=== PATIENT | female | born 1965 | race Caucasian/White ===

== ENCOUNTER 2020-04-25 03:21 | Outpatient (CLI) | payer BC, SELFPAY ==
[2020-04-25 19:05] LABS: SARS-CoV-2 RNA PCR Negative
== END 2020-04-25 03:22 | disposition home or self-care (01) ==
LOC: ANHCOVIDDT 03:22
PROVIDERS: PCP Family Medicine; Visit Provider Internal Medicine Gastroenterology
DX: Z01.812 Encounter for preprocedural laboratory examination (principal); Z20.828 Contact with and (suspected) exposure to other viral communicable diseases
CPT/HCPCS: 87635; C9803; U0003

== ENCOUNTER 2020-04-27 01:06 | Day surgery (SDC) | payer BC, SELFPAY ==
[2020-04-23 09:05] VITALS: BMI 28.5
[2020-04-27 08:16] VITALS: BP 180/88; PULSE 104; RESP 20; TEMP 36.2; O2SAT 99; BMI 29.6
--- NOTE | 2020-04-27 08:28 | P.HP_ITS ---
History of Present Illness History of Present Illness Consent: Risks, benefits, and alternatives have been discussed and questions answered. Patient agrees to proceed with procedure. Chief complaint: neoplasm screening, family hx colon CA Narrative: Nhi Romano is a 54 year old W female referred for her 1st screening colonoscopy secondary to family history of colon cancer in her sister diagnosed in her 50s and maternal grandfather diagnosed greater than 60 years of age. Patient is asymptomatic. There is also history of breast cancer in the family. She states she does not think her sister had genetic testing for colorectal cancer syndrome. However she will find this out. [facility] Past Medical History Medical History Hypertension Renal insufficiency Smoker Surgical History Surgical History (Updated 04/27/20 @ 08:30 by Miguel Jiménez MD) History of ankle surgery Family History Family History (Updated 02/01/16 @ 23:19 by DOCTOR UNKNOWN) Sibling Hypertension Father Hypertension Mother Family history of kidney disease Family history of diabetes mellitus in first degree relative Family history of congestive heart failure Family history of heart disease in male family member before age 55 Grandparent Carcinoma of colon Other Diabetes mellitus Family history of cardiovascular disease Family history of malignant neoplasm Social History Social History Smoking status: Current every day smoker Tobacco type: cigarettes Alcohol intake: current Drinks per week: 3 Substance use: unknown Substance use type: does not use Living arrangements: with family Spiritual care concerns: No Meds Home Medications and Allergies Home Medications Medication Instructions Recorded Confirmed Type diltiazem HCl [Cartia XT] 240 mg PO DAILY 04/23/20 04/27/20 History ranitidine HCl [Heartburn Relief 75 mg PO PRN PRN 04/23/20 04/23/20 History (ranitidine)] Allergies Allergy/AdvReac Type Severity Reaction Status Date / Time morphine Allergy Unknown Sick to Verified 04/27/20 08:14 stomach Vital Signs Vital Signs - 24 hr 04/27/20 08:16 Temperature 36.2 C L Pulse Rate 104 H Respiratory Rate 20 Blood Pressure 180/88 H Pulse Oximetry 99 Exam Const: Orientation/consciousness: patient oriented x3 Resp: Auscultation: clear to auscultation bilaterally Cardio: Rate: regular rate Rhythm: regular rhythm Heart sounds: no murmurs GI: GI Palp: Yes Soft to palpation, No Tenderness to palpation present (GI), Yes No hepatosplenomegaly present and No Palpable mass present Auscultation: normal bowel sounds Neuro: General: patient oriented x3 and no focal motor deficits Extrem: General: no pedal edema Assessment and Plan Additional Plan screening colonoscopy in high risk patient
--- NOTE | 2020-04-27 08:31 | WPDANESEPPF ---
Anes - Initial Pre Proc Eval Procedure: Operation Date: 04/27/20 09:00 Proposed Procedures p Screening Colonoscopy - Miguel Jiménez MD Date/Time: 04/27/20 08:31 Surgeon: Miguel Jiménez MD Pre Op Diagnosis: neoplasm screening, family hx colon CA Patient Data Age: 54 Gender: F Height: 1.6 m Weight: 75.9 kg Last Vital Signs Temp 36.2 C L 04/27/20 08:16 Pulse 104 H 04/27/20 08:16 Resp 20 04/27/20 08:16 BP 180/88 H 04/27/20 08:16 Pulse Ox 99 04/27/20 08:16 Allergies Allergy/AdvReac Type Severity Reaction Status Date / Time morphine Allergy Unknown Sick to Verified 04/27/20 08:14 stomach Home Medications Medication Instructions Recorded Confirmed Type diltiazem HCl [Cartia XT] 240 mg PO DAILY 04/23/20 04/27/20 History ranitidine HCl [Heartburn Relief 75 mg PO PRN PRN 04/23/20 04/23/20 History (ranitidine)] Patient hx anesthesia problems: none Family hx anesthesia problems: none PMFSH Past Medical History Medical History Hypertension Overweight (BMI 25.0-29.9) Renal insufficiency Smoker Surgical History Surgical History (Updated 04/27/20 @ 08:30 by Miguel Jiménez MD) History of ankle surgery Family History Family History (Updated 02/01/16 @ 23:19 by DOCTOR UNKNOWN) Sibling Hypertension Father Hypertension Mother Family history of kidney disease Family history of diabetes mellitus in first degree relative Family history of congestive heart failure Family history of heart disease in male family member before age 55 Grandparent Carcinoma of colon Other Diabetes mellitus Family history of cardiovascular disease Family history of malignant neoplasm Social History Social History Smoking status: Current every day smoker Tobacco type: cigarettes Alcohol intake: current Drinks per week: 3 Substance use: unknown Substance use type: does not use Living arrangements: with family Spiritual care concerns: No Anes - Eval Final PreProcedure Day of Procedure 04/27/20 08:31 Patient weight: overweight Heart: regular rate and rhythm Lungs: clear to auscultation and normal air movement Airway: Mallampati scale class II Neurological: alert and oriented Last oral intake: >/= 8 hours ASA classification: III Emergent: no Anesthetic plan: proceed Anesthesia type and monitoring: general GIVS Informed Consent: The patient's anesthetic plan and its attendant risks and benefits were discussed with the patient/family/POA. Questions were solicited and answers provided to the satisfaction of the patient/family/POA.
[2020-04-27] MEDS: LACTATED RINGERS 1,000 ML 150 ML IV CONT (08:33)
[2020-04-27 09:33] VITALS: BP 141/80; PULSE 88; RESP 26; O2SAT 100
[2020-04-27 09:43] VITALS: BP 150/97; PULSE 81; RESP 21; O2SAT 99
[2020-04-27 09:53] VITALS: BP 163/98; PULSE 82; RESP 22; O2SAT 98
== END 2020-04-27 09:58 | disposition home or self-care (01) ==
PROVIDERS: PCP Family Medicine; Referring Provider Obstetrics & Gynecology Gynecology; Visit Provider Internal Medicine Gastroenterology
PROC: 0DJD8ZZ Inspection of Lower Intestinal Tract, Via Natural or Artificial Opening Endoscopic (ICD-10-PCS; CPT 45378; principal; 2020-04-27 09:00)
DX: Z12.11 Encounter for screening for malignant neoplasm of colon (principal); K63.5 Polyp of colon; K62.1 Rectal polyp; K64.8 Other hemorrhoids; K64.4 Residual hemorrhoidal skin tags; I10 Essential (primary) hypertension; N28.9 Disorder of kidney and ureter, unspecified; F17.210 Nicotine dependence, cigarettes, uncomplicated; Z80.0 Family history of malignant neoplasm of digestive organs; Z80.3 Family history of malignant neoplasm of breast
CPT/HCPCS: 45385; 45380; 88305; J2704; J7120

== ENCOUNTER → 2020-12-05 16:39 | Outpatient (CLI) | payer BC, SELFPAY ==
--- NOTE | ~2020-12-05 | MM_ITS ---
EXAMINATION: MM screening erin BI w sen HISTORY: Screening TECHNIQUE: Craniocaudal and mediolateral oblique 3-D tomosynthesis images were obtained and synthetic 2-D images were generated. CAD analysis was submitted and interpreted. COMPARISON: No prior mammogram is available for comparison at this institution. BREAST PARENCHYMAL COMPOSITION: There are scattered areas of fibroglandular density. FINDINGS: There is no evidence of suspicious mass, calcification, or architectural distortion to sugg est malignancy in either breast. There has been no suspicious interval change. IMPRESSION: 1. No mammographic evidence of malignancy. 2. Recommend routine screening mammography in one year. BI-RADS Category 1: Negative Reviewed, dictated and finalized at location A.
== END ==
PROVIDERS: PCP Family Medicine; Visit Provider Nurse Practitioner
DX: Z12.31 Encounter for screening mammogram for malignant neoplasm of breast (principal)
CPT/HCPCS: 77063; 77067

== ENCOUNTER → 2021-01-14 17:51 | Outpatient (CLI) | payer BC, SELFPAY ==
--- NOTE | ~2021-01-14 | DEXA_ITS ---
Bone Density Report Name: Nhi Romano Age: 55 Sex: Female Ethnicity: White Date of : 1965 Indication: postmenopausal; screening for osteoporosis; Referring Provider: Deja, Diamante Study: Bone densitometry was performed. Exam Date: January 14, 2021 Accession number: [id number] Bone Density: Region BMD T-score Z-score Classification AP Spine (L1-L4) 0.949 -0.9 0.1 Normal Femoral Neck (Left) 0.677 -1.6 -0.6 Osteopenia Total Hip (Left) 0.832 -0.9 -0.3 Normal Femoral Neck (Right) 0.718 -1.2 -0.2 Osteopenia Total Hip (Right) 0.882 -0.5 0.1 Normal Total Hip Mean 0.857 -0.7 -0.1 Normal World Health Organization criteria for BMD impression classify patients as: Normal (T-score at or above -1.0), Osteopenia (T-score between -1.0 and -2.5), or Osteoporosis (T-score at or below -2.5). 10-year Fracture Risk(1): Major Osteoporotic Fracture 5.9% Hip Fracture 0.8% Reported Risk Factors: [place] (), Neck BMD=0.677, BMI=29.3, smoking (1) FRAX(R) Version 3.08. Fracture probability calculated for an untreated patient. Fracture probability may be lower if the patient has received treatment. Clinical Information Provided by Patient: Smokes Has used the following medications: Vitamin D, Calcium, MTV Patient maximum height was 63.5 Menopause Age: 53 No regular weight bearing exercise Drinks caffeinated beverages Onset of menses at age 15 Number of children 1 Impression: The patient has low bone mass, based on the Left Femoral Neck T-score. The patient has an estimated ten-year risk of hip fracture of 0.8% and an estimated ten-year risk of major fracture of 5.9%, based on the WHO FRAX algorithm. The patient has risk factors, including: smoking. Discussion: BONE DENSITY IS LOW AT ONE OR MORE SKELETAL SITES. This patient's lowest T-score is low at one or more skeletal sites. It meets the World Health Organization's (WHO) criteria for ?low bone mass? (T-score between -1.0 and -2.5). The patient's 10-year risk of fracture as calculated by FRAX is less than the threshold where pharmacological therapy is recommended by the National Osteoporosis Foundation (NOF). However, all treatment decisions require clinical judgment and consideration of individual patient factors, including patient preferences, comorbidities, previous drug use, risk factors not captured in the FRAX model (e.g., frailty, falls, vitamin D deficiency, increased bone turnover, interval significant decline in bone density) and possible under or overestimation of fracture risk by FRAX. The patient should follow a healthful lifestyle (good nutrition with adequate calcium and vitamin D, and appropriate weight-bearing exercise). Follow-Up: Consider repeating this study in 2 to 3 years to reassess this patient's status, or sooner if
== END ==
PROVIDERS: Visit Provider Nurse Practitioner
DX: Z13.820 Encounter for screening for osteoporosis (principal); M85.89 Other specified disorders of bone density and structure, multiple sites
CPT/HCPCS: 77080

== ENCOUNTER 2023-04-03 00:25 | Day surgery (SDC) | payer BC, SELFPAY ==
[2023-03-19 14:04] VITALS: BMI 30.2
--- NOTE | 2023-04-01 16:15 | PM.HPGS ---
History of Present Illness History of Present Illness Consent: Risks, benefits, and alternatives have been discussed and questions answered. Patient agrees to proceed with procedure. Chief complaint: epigastric pain, GERD, vomiting Narrative: Nhi Romano is a 57 year old female who states she has always had trouble with reflux and intermittent vomiting.? She states over the last 6 months she has been experiencing epigastric abdominal pain straight down to the top of her umbilicus that she describes as burning, when she gets this discomfort she will immediately vomit and typically it is undigested food and then will follow with acid bile. after she vomits she usually is instantly better. She also has suffered from heartburn for years for which she has used [id number] products from time to time. Since her office visit last month she has been taking omeprazole daily and is feeling somewhat better. Review of Systems Review of Systems: All systems reviewed & are unremarkable except as noted in HPI and below PMFSH Past Medical History Medical History Epigastric pain Family hx of colon cancer Hyperplastic colonic polyp Hypertension Overweight (BMI 25.0-29.9) Renal insufficiency Smoker Vomiting Surgical History Surgical History History of ankle surgery Family History Family History Sibling Hypertension Father Hypertension Mother Family history of kidney disease Family history of diabetes mellitus in first degree relative Family history of congestive heart failure Family history of heart disease in male family member before age 55 Grandparent Carcinoma of colon Other Diabetes mellitus Family history of cardiovascular disease Family history of malignant neoplasm Social History Social History Years smoked: 20 Smoking status: Former smoker Tobacco type: cigarettes Additional smoking assessment comments: 1 pack per week Alcohol intake: current Drinks per week: 3 Alcohol use details: social Substance use: unknown Substance use type: does not use Lack of Transportation: No Lack of Food: Never True Current Housing: I Have Housing Concerned About Future Housing: No Difficulty Paying Gas/Electric Bills: No Difficulty Paying for Meds: No Currently Unemployed: No Education: Bachelor's Degree Living arrangements: with family Gender identity (if verbalized by the patient): Female Spiritual care concerns: No Meds Home Medications and Allergies Home Medications Medication Instructions Recorded Confirmed Type omeprazole 20 mg capsule,delayed 20 mg PO DAILY #30 caps 12/26/22 04/03/23 Rx release nifedipine 60 mg tablet,extended 60 mg PO DAILY #30 tabs 01/27/23 04/03/23 Rx release 24 hr Allergies Allergy/AdvReac Type Severity Reaction Status Date / Time morphine Allergy Unknown Sick to Verified 04/03/23 07:48 stomach Exam Const: General: alert Orientation/consciousness: patient oriented x3 Resp: Auscultation: clear to auscultation bilaterally Cardio: Rhythm: regular rhythm GI: GI Palp: Yes Soft to palpation and No Tenderness to palpation present (GI) Neuro: General: patient oriented x3 Assessment and Plan Assessment and plan (1) Vomiting: Code(s): R11.10 - Vomiting, unspecified Status: Acute (2) Epigastric pain: Code(s): R10.13 - Epigastric pain Status: Acute Assessment and Plan: EGD with possible biopsy or dilatation or cautery.
[2023-04-03 07:40] VITALS: BP 163/91; PULSE 91; RESP 18; TEMP 36.8; O2SAT 98; BMI 29.4
[2023-04-03] MEDS: LACTATED RINGERS 1,000 ML 150 ML IV CONT (08:08)
--- NOTE | 2023-04-03 08:41 | WPDANESEPPF ---
Anes - Initial Pre Proc Eval Procedure: Operation Date: 04/03/23 09:00 Proposed Procedures p Esophagogastroduodenoscopy - Julio Monet MD Date/Time: 04/03/23 08:41 Surgeon: Julio Monet MD Pre Op Diagnosis: epigastric pain, GERD, vomiting Patient Data Age: 57 Gender: F Height: 1.6 m Weight: 75.3 kg Last Vital Signs Temp 98.3 F 04/03/23 07:40 Pulse 91 04/03/23 07:40 Resp 18 04/03/23 07:40 BP 163/91 H 04/03/23 07:40 Pulse Ox 98 04/03/23 07:40 O2 Del Method Room Air 04/03/23 07:40 Allergies Allergy/AdvReac Type Severity Reaction Status Date / Time morphine Allergy Unknown Sick to Verified 04/03/23 07:48 stomach Home Medications Medication Instructions Recorded Confirmed Type omeprazole 20 mg capsule,delayed 20 mg PO DAILY #30 caps 12/26/22 04/03/23 Rx release nifedipine 60 mg tablet,extended 60 mg PO DAILY #30 tabs 01/27/23 04/03/23 Rx release 24 hr Patient hx anesthesia problems: none Family hx anesthesia problems: none Results Review: All pre-operative results and documents have been reviewed as part of the pre-operative evaluation. [facility] Past Medical History Medical History Epigastric pain Family hx of colon cancer Hyperplastic colonic polyp Hypertension Overweight (BMI 25.0-29.9) Renal insufficiency Smoker Vomiting Surgical History Surgical History History of ankle surgery Family History Family History Sibling Hypertension Father Hypertension Mother Family history of kidney disease Family history of diabetes mellitus in first degree relative Family history of congestive heart failure Family history of heart disease in male family member before age 55 Grandparent Carcinoma of colon Other Diabetes mellitus Family history of cardiovascular disease Family history of malignant neoplasm Social History Social History Years smoked: 20 Smoking status: Former smoker Tobacco type: cigarettes Additional smoking assessment comments: 1 pack per week Alcohol intake: current Drinks per week: 3 Alcohol use details: social Substance use: unknown Substance use type: does not use Lack of Transportation: No Lack of Food: Never True Current Housing: I Have Housing Concerned About Future Housing: No Difficulty Paying Gas/Electric Bills: No Difficulty Paying for Meds: No Currently Unemployed: No Education: Bachelor's Degree Living arrangements: with family Gender identity (if verbalized by the patient): Female Spiritual care concerns: No Anes - Eval Final PreProcedure Day of Procedure 04/03/23 08:41 Patient weight: obese Heart: regular rate and rhythm Lungs: clear to auscultation Airway: Mallampati scale class II Neurological: alert and oriented Last oral intake: >/= 8 hours ASA classification: II Emergent: no Anesthetic plan: proceed Anesthesia type and monitoring: general GIVS and standard monitoring Results Review: All pre-operative results and documents have been reviewed as part of the pre-operative evaluation. Informed Consent: The patient's anesthetic plan and its attendant risks and benefits were discussed with the patient/family/POA. Questions were solicited and answers provided to the satisfaction of the patient/family/POA.
[2023-04-03 09:07] VITALS: BP 133/78; PULSE 92; RESP 22; O2SAT 94
[2023-04-03 09:17] VITALS: BP 155/96; PULSE 73; RESP 20; O2SAT 96
[2023-04-03 09:27] VITALS: BP 158/95; PULSE 72; RESP 18; O2SAT 96
== END 2023-04-03 09:38 | disposition home or self-care (01) ==
PROVIDERS: PCP Family Medicine; Visit Provider Internal Medicine Gastroenterology
PROC: 0DJ08ZZ Inspection of Upper Intestinal Tract, Via Natural or Artificial Opening Endoscopic (ICD-10-PCS; CPT 43235; principal; 2023-04-03 09:00)
DX: K21.9 Gastro-esophageal reflux disease without esophagitis (principal); K25.9 Gastric ulcer, unspecified as acute or chronic, without hemorrhage or perforation; K31.7 Polyp of stomach and duodenum; I10 Essential (primary) hypertension; Z80.0 Family history of malignant neoplasm of digestive organs; Z87.891 Personal history of nicotine dependence; E66.9 Obesity, unspecified; Z68.29 Body mass index [BMI] 29.0-29.9, adult
CPT/HCPCS: 43239; 87081; 88305; J2704; J7120